=== PATIENT | female | born 1955 | race Caucasian/White ===

== ENCOUNTER 2022-08-14 14:05 | Outpatient (CLI) | payer OTHER | END 2022-08-14 14:06 | disposition home or self-care (01) | LOC: ULT 14:05 | PROVIDERS: ATTEND Physician Assistant | DX: N83.201 Unspecified ovarian cyst, right side (principal); J70.3 Chronic drug-induced interstitial lung disorders; Z72.0 Tobacco use | CPT/HCPCS: 71271 ==

== ENCOUNTER 2022-09-14 12:52 | Outpatient (CLI) | payer MEDICARE, OTHER | END 2022-09-14 12:53 | disposition home or self-care (01) | LOC: BICMAMMO 12:52 | PROVIDERS: ATTEND Physician Assistant | DX: Z12.31 Encounter for screening mammogram for malignant neoplasm of breast (principal); Z13.820 Encounter for screening for osteoporosis; M81.0 Age-related osteoporosis without current pathological fracture; Z78.0 Asymptomatic menopausal state | CPT/HCPCS: 77063; 77067; 77080 ==